=== PATIENT | female | born 1935 | race Caucasian/White ===

== ENCOUNTER 2022-02-13 09:03 | Inpatient (IN) | payer MEDICARE, BC ==
[~2022-02-13] VITALS: Ht 172.7 cm; Wt 79.2 kg
[2022-02-13] MEDS ORDERED: HYDROCHLOROTH12.5 MG PO (09:42)
[2022-02-13] MEDS ORDERED: ATORVASTATIN CA20 MG PO (09:42)
[2022-02-13] MEDS ORDERED: ATENOLOL25 MG PO (09:42)
[2022-02-13] MEDS ORDERED: ZONISAMIDE100 MG PO (09:42)
[2022-02-13] MEDS ORDERED: METFORMIN HCL500 M1 PO (09:43)
[2022-02-13] MEDS ORDERED: LOSARTAN POTAS100 MG PO (09:43)
[2022-02-13] MEDS ORDERED: BAYER CHEWABLE81 MG PO (09:43)
[2022-02-13] MEDS ORDERED: MULTIVITAMINS1 EACH PO (09:44)
[2022-02-13] MEDS ORDERED: BENEFIBER236 GM PO (09:44)
--- NOTE | 2022-02-13 13:15 | NUR ---
RECEIVED REPORT FROM ER FOR PT. PT TRANSFERRED VIA STRETCHER WITH NIGHT SHIFT AND CONTINUOUS FLUIDS. PT AMBULATED TO BED WITH STEADY GAIT AND NO WEAKNESS. HR FLUCTUATED BETWEEN 100 UP TO 130'S WITH AMBULATION. PT DID NOT EXPERIENCE ANY DIZZINESS/SOB/WEAKNESS WHILE AMBULATING. DAUGHTER IS IN ROOM AT BEDSIDE. ECHO CURRENTLY BEING PERFORMED. CALL LIGHT WITHIN REACH.
--- NOTE | 2022-02-13 13:27 | NUR ---
IMAGING IN ROOM AT THIS TIME
--- NOTE | 2022-02-13 14:51 | NUR ---
PERFORMED ADMIT ASSESSMENT ON PT AND MATERIALS MANAGER. PT HR REMAINS IRREGULAR, FLUCTUATING BETWEEN 80-LOW 100'S. BP IS LOW 100'S SYSTOLIC. PT IS NOT EXPERIENCING ANY CHEST PAIN, SOB, DIZZINESS. PULSES STRONG AND PRESENT THROUGHOUT. LUNGS ARE CLEAR THROUGHOUT. PT SKIN WARM/DRY BESIDES SLIGHTLY COLD FEET. PT IS NOW RESTING IN BED W/DAUGHTER AT BEDSIDE. BED RAILS UP, CALL LIGHT WITHIN REACH, NO FURTHER NEEDS AT THIS TIME. WILL CONTINUE TO MONITOR.
--- NOTE | 2022-02-13 15:18 | EKG ---
[facility] [address] [facility] [address] [facility] [place] [id number] Signed Atrial fibrillation with rapid ventricular response with premature ventricular or aberrantly conducted complexes Left anterior fascicular block Left ventricular hypertrophy with QRS widening ( R in aVL , Jeremiah product ) ST \T\ T wave abnormality, consider lateral ischemia Abnormal ECG No previous ECGs available Confirmed by ELIDIA PAREDES MD ([id number]) on 02/13/2022 3:18:35 PM Electronically Signed By: ELIDIA PAREDES MD 02/13/22 1518 PATIENT NAME: LIZZIE ZAYAS Electrocardiogram DATE OF : 39 PHYSICIAN: ELIDIA PAREDES MD REPORT #: [id number] REPORT IS CONFIDENTIAL AND NOT TO BE RELEASED WITHOUT AUTHORIZATION
--- NOTE | 2022-02-13 16:18 | NUR ---
IN TO ASSIST PT WITH AMBULATION. PT WAS ABLE TO AMBULATE WITH STEADY GAIT, STRENGTH TO BATHROOM. NO SOB/DIZZINESS/CHEST PAIN EXPERIENCED PER PT. AFIB. DOCUMENTED BM AND 500 ML URINE OUTPUT. HR REMAINS BETWEEN 80-100. INCREASES UP TO 120'S WITH AMBULATION. BP REMAINS LOW 100'S SYSTOLIC WITH MAP OF 91. LUNGS CLEAR THROUGHOUT. PULSES PRESENT THROUGHOUT. PT IS NOW RESTING IN BED WITH FAMILY AT BEDSIDE. NO FURTHER NEEDS AT THIS TIME. CALL LIGHT WITHIN REACH, BED RAILS UP, WILL CONTINUE TO MONITOR.
[2022-02-13] MEDS ORDERED: VITAMIN B-12500 MCG PO (17:00)
--- NOTE | 2022-02-13 17:04 | NUR ---
MED REC COMPLETE
--- NOTE | 2022-02-13 17:16 | NUR ---
IN PT ROOM FOR MELTER OPERATOR. PT IS SITTING UP IN BED EATING DINNER. PT HR IS FLUCTUATING BETWEEN 110-130. PT FAMILY IS AT BEDSIDE. SALINE LOCKED IV ON RIGHT FA. NO FURTHER NEEDS AT THIS TIME, CALL LIGHT WITHIN REACH, WILL CONTINUE TO MONITOR.
--- NOTE | 2022-02-13 17:47 | NUR ---
CALLED DR PAREDES WITH UPDATE ON PT ASSESSMENT. PT HR REMAINS AFIB WITH HR TRENDING UPWARDS TO [address] PAREDES STATES TO CONTINUE COURSE OF ACTION WITH CARE PLAN. WILL CONTINUE TO MONITOR.
--- NOTE | 2022-02-13 19:01 | NUR ---
ASSISTED PT WITH AMBULATION TO BATHROOM. GAIT REMAINS STEADY AND STRENGTH INTACT. PT DID NOT EXPERIENCE ANY SOB/DIZZINESS/CHEST PAIN WITH AMBULATION. HR ELEVATED TO 120'S WITH AMBULATION. DOCUMENTED 500 ML URINE OUTPUT. PT IS NOW RESTING IN BED WITH FAMILY AT BEDSIDE, AND WARM BLANKET. NO FURTHER NEEDS AT THIS TIME, CALL LIGHT WITHIN REACH, WILL CONTINUE TO MONITOR.
--- NOTE | 2022-02-13 20:15 | NUR ---
PT SITTING UP IN BED AWAKE AND ALERT, PT SALINE LOCKED, PT'S FAMILY AT THE BEDSIDE. VITALS TAKEN (SEE CHART) AND SCHEDULED PO METOPROLOL ADMINISTERED (SEE MAR). ASSESSMENT THEN COMPLETED. PT ALERT AND ORIENTED X4, DENIES LIGHTHEADNESS AND DENIES HAVING ANY PAIN. HEART RATE IRREGULAR, LUNGS ARE CLEAR, ABDOMEN SOFT, ACTIVE BOWEL TONES PRESENT. RADIAL AND PEDAL PULSES STRONG WITH BRISK CAPILLARY REFILL. PT REPORTS BASELINE NUMBNESS/TINGLING TO HER RIGHT LOWER EXTREMITY. PT REPORTS NO FURTHER NEEDS AT THIS TIME WHEN ASKED AND REMAINS RESTING IN BED WITH HER FAMILY AT THE BEDSIDE, WILL CONTINUE PLAN OF CARE. CALL LIGHT IN REACH.
--- NOTE | 2022-02-13 21:46 | NUR ---
PT SITTING UP IN BED AT THIS TIME AWAKE AND ALERT. SCHEDULED MEDICATION ADMINISTERED (SEE MAR). PT REPORTS NEEDING TO VOID AFTERWARDS, PT ASSISTED IN STANDING. PT ABLE TO WALK TO THE BATHROOM TO VOID 400ML OF YELLOW URINE AND GET BACK INTO THE BED WITHOUT ASSISTANCE. HR NOTED TO INCREASE TO THE 120'S WITH ACTIVITY, PT DENIES LIGHTHEADNESS/DIZZYNESS WHEN ASKED. 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 PT PROVIDED WITH WATER AFTERWARDS AND IS NOW RESTING IN BED. PT REPORTS NO FURTHER NEEDS WHEN ASKED, WILL CONTINUE PLAN OF CARE. CALL LIGHT IN REACH, BED IN LOWEST POSITION, PT'S DAUGHTER IN THE ROOM AT THE BEDSIDE.
--- NOTE | 2022-02-14 00:08 | NUR ---
PT LAYING IN BED SLEEPING AT THIS TIME. RESPIRATIONS NOTED AND ARE EVEN AND UNLABORED, PT IN NO APPARENT DISTRESS AND WAS LEFT UNDISTURBED. CALL LIGHT IN REACH, PT'S DAUGHTER SLEEPING IN ROOM ONT HE PULL DOWN BED, WILL CONTINUE PLAN OF CARE.
--- NOTE | 2022-02-14 01:50 | NUR ---
PT LAYING IN BED AWAKE AND ALERT. VITALS TAKEN AT THIS TIME AND SCHEDULED METOPROLOL ADMINISTERED (SEE MAR). PT UP TO THE BATHROOM TO VOID AFTERWARDS AND REQUIRED MINIMAL ASSISTANCE. HR NOTED TO INCREASE TO THE 110-120'S PT DENIED LIGHTHEADEDNESS OR DIZZYNESS. PT NOW BACK IN BED RESTING, WARM BLANKETS PROVIDED AND WATER PROVIDED. PT REPORTS NO FURTHER NEEDS, PILLOW PROVIDED TO ELEVATE LEFT ARM. PT REPORTS NO FURTHER NEEDS AT THIS TIME WHEN ASKED AND REMIANS RESTING IN BED, WILL CONTINUE PLAN OF CARE. CALL LIGHT IN REACH.
--- NOTE | 2022-02-14 05:15 | NUR ---
PT LAYING IN BED AWAKE AND ALERT. VITALS TAKEN AND ASSESSMENT COMPLETED AT THIS TIME. PT DENIES SHORTNESS OF BREATH, CHEST PAIN, OR PAIN IN GENERAL (SEE CHART). PT NEEDED TO VOID AFTER ASSESSMENT. PT ABLE TO GET OUT OF BED WITH MINIMAL ASSISTANCE, WALK TO THE BATHROOM TO VOID, AND GET BACK INTO BED. HR NOTED TO BE IN THE 100-120'S WITH AMBULATION, PT DENIED HAVING ANY LIGHTHEADEDNESS. PT NOW RESTING IN BED, WARM BLANKETS AND WATER PROVIDED. PT REPORTS NO FURTHER NEEDS WHEN ASKED, WILL CONTINUE PLAN OF CARE.
--- NOTE | 2022-02-14 05:55 | NUR ---
PT HEART RATED NOTED TO BE TRENDING UP AND IS MAINTAINING AT 100-120 IN A-FIB. PT AWAKE IN BED AT THIS TIME IN REST. PT DENIES HAVING ANY CHEST PAIN, AND DENIES FEELING LIGHTHEADED OR DIZZY. VITALS TAKEN AT THIS TIME. PT REPORTS NO FURTHER NEEDS AT THIS TIME WHEN ASKED, WILL CONTINUE PLAN OF CARE.
--- NOTE | 2022-02-14 06:15 | NUR ---
DR. PAREDES NOTIFIED OF PT'S INCREASING HEART RATE AND OTHER VITALS WELL PT BEING ALERT/ORIENTED AND DENYING ANY LIGHTHEADEDNESS OR DIZZNESS. NEW ORDERS GIVEN TO ADMINISTER 50MG METOPROLOL PO Q6 WITH THE FIRST DOSE STARTING NOW. WILL CONTINUE PLAN OF CARE.
--- NOTE | 2022-02-14 06:33 | NUR ---
PT LAYING IN BED AWAKE AT THIS TIME AND DENIES ANY CHEST PAIN OR LIGHTHEADEDNESS. VITALS TAKEN AND SCHEDULED LOPRESSOR ADMINISTERED (SEE MAR). PT REPORTS NO FURTHER NEEDS WHEN ASKED AT THIS TIME, CALL LIGHT IN REACH, WILL CONTINUE PLAN OF CARE.
--- NOTE | 2022-02-14 07:23 | NUR ---
RECEIVED MORNING REPORT, IN TO SEE PT. PT IS RESTING IN BED. HR IS IN LOW 90'S AT REST, NO SOB/DIZZINESS/CHEST PAIN. PT IS SLEEPING, DAUGHTER AT BEDSIDE. CALL LIGHT WITHIN REACH, BED RAILS UP, WILL CONTINUE TO MONITOR.
--- NOTE | 2022-02-14 07:52 | NUR ---
PATIENT UP TO BR WITH ASSISTANCE. VITALS AND I&OS CHARTED. DAUGHTER IN ROOM. PATIENT UP IN RECLINER FOR BREAKFAST AT THIS TIME. LINEN CHANGED AND CALL LIGHT IN EASY REACH
--- NOTE | 2022-02-14 07:53 | NUR ---
IN ROOM THIS AM TO CHECK ON PATIENT. PT CONTINUES TO BE IN AN AFIB RHYTHM WITH RATES THAT FLUCTUATE BETWEEN 90 AT REST AND UP INTO THE 130S WITH ACTIVITY. PT DENIES PAIN, SHORTNESS OF BREATH, OR DIZZINESS. DAUGHTER REMAINS AT BEDSIDE. CALL LIGHT WITHIN REACH. WILL CONTINUE TO MONITOR.
--- NOTE | 2022-02-14 08:55 | NUR ---
PT UP IN CHAIR EATING BREAKFAST. TWO DAUGHTERS AT PT BEDSIDE. PT HEART RATE IN THE 120S-130S CONSISTENTLY. BLOOD PRESSURE'S SYSTOLICALLY IN 90S. PT NOW BACK IN BED RESTING.
--- NOTE | 2022-02-14 09:29 | NUR ---
DISCUSSED PT HEART RATE AND ASSESSMENT FINDINGS WITH DR. PAREDES. ORDERS RECIEVED (SEE EMAR).
--- NOTE | 2022-02-14 09:34 | NUR ---
ASSISTED PT WITH AMBULATION TO BATHROOM. PT REPORTS NO SOB, DIZZINESS, LIGHTHEADEDNESS. HR WAS BETWEEN 130-140 WITH AMBULATION. BP REMAINS SOFT AT 99/72 POST AMBULATION. PT IS NOW RESTING IN BED WITH HEATED BLANKET ON BACK DUE TO ARTHRITIS. PT STATES SLIGHT PRESSURE SENSATION IN CHEST NOT PRESENT DURING AMBULATION, BUT POST ACTIVITY. FAMILY AT BEDSIDE, NO FURTHER NEEDS AT THIS TIME. WILL CONTINUE TO MONITOR.
--- NOTE | 2022-02-14 09:42 | NUR ---
CARDIZEM DRIP NOW INFUSING AT 5 MG/HR PER ORDER. FAMILY UPDATED ON PLAN OF CARE.
--- NOTE | 2022-02-14 11:10 | NUR ---
CARDIZEM DRIP PLACED ON STAND BY AT THIS TIME. PT HEART RATE HAS BEEN IN THE 70S-80S WITH SYSTOLIC BLOOD PRESSURES IN THE 90S-100S. DR REGGIE CONNELLY.
--- NOTE | 2022-02-14 12:07 | NUR ---
ASSISTED PT WITH AMBULATION TO BATHROOM AND TO CHAIR FOR LUNCH. PT AMBULATED WITH A STEADY GAIT AND DID NOT EXPERIENCE ANY SOB/DIZZINESS/CHEST PAIN. PT VOIDED 200 ML. PT IS NOW SITTING IN CHAIR EATING LUNCH WITH DAUGHTERS AT BEDSIDE. CALL LIGHT WITHIN REACH, WILL CONTINUE TO MONITOR.
--- NOTE | 2022-02-14 12:09 | NUR ---
IN ROOM FOR DR. PAREDES UPDATING PT AND FAMILY ON ECHO RESULTS AND PLAN OF CARE. WILL INCREASE METOPROLOL DOSE TO 75 MG, PT WILL BE STARTED ON A BLOOD THINNER (WILL CHECK WITH INS), AND WILL MONITOR HEART RATE/RHYTHM DURING WALK. PT AND DAUGHTERS ARE UNDERSTANDING AND IN AGREEANCE WITH CARE PLAN. PT IS RESTING IN CHAIR AND WILL EAT LUNCH. CALL LIGHT WITHIN REACH, NO FURTHER NEEDS AT THIS TIME, WILL CONTINUE TO MONITOR.
--- NOTE | 2022-02-14 12:48 | NUR ---
IN ROOM FOR MEDICATION ADMINISTRATION. SYSTOLIC BLOOD PRESSURE 96/58. DISCUSSED WITH DR. PAREDES. ORAL METOPROLOL ADMINISTERED AT THIS TIME (SEE EMAR).
--- NOTE | 2022-02-14 13:00 | NUR ---
PATIENT UP TO BR WITH 1PA. PATIENTS HR ELEVATED WITH ACTIVITY AND ALSO WHILE STANDING AT SINK BRUSHING TEETH. 3 DAUGHTERS IN ROOM. PATIENT BACK IN BED AT THIS TIME. CALL LIGHT AND PERSONAL ITEMS IN EASY REACH
--- NOTE | 2022-02-14 13:05 | NUR ---
IN PT ROOM FOR AFTERNOON ASSESSMENT AND CHIEF DIGITAL MEDIA OFFICER (SEE EMAR). PT IS RESTING IN CHAIR AFTER EATING LUNCH. PT HR IS 80-90'S AT REST AND INCREASES TO 100-115 WITH AMBULATION. PT BP REMAINS SOFT WITH 80-90'S SYSTOLIC. NO DIZZINESS/CHEST PAIN/LIGHTHEADEDNESS OCCURING PER PT. PULSES STRONG IN UPPER EXTREMETIES BUT WEAK/THREADY IN PEDAL. FEET ELEVATED WITH WARM BLANKET. LUNGS ARE STILL CLEAR THROUGHOUT. CALL LIGHT IS IN REACH, PT RECLINED WITH BLANKETS IN CHAIR, WILL CONTINUE TO MONITOR.
--- NOTE | 2022-02-14 15:00 | NUR ---
IN WITH PT FOR AFTERNOON ASSESSMENT, AND AMBULATION TO BATHROOM. PT TOLERATED WELL WITH NO SOB/DIZZINESS/CHEST PAIN AND MAINTAINED STEADY GAIT. PT HR 80'S-90'S AT REST AND 100-120 WITH AMBULATION. PT AGREED TO A WALK LATER DOWN THE FINNEY FOR FURTHER MONITORING. PT LUNGS CLEAR THROUGHOUT, PULSES PRESENT RADIAL/PEDAL WITH WARM/DRY SKIN. PT IS NOW RESTING IN BED WITH DAUGHTER AT BEDSIDE. NO FURTHER NEEDS AT THIS TIME. CALL LIGHT WITHIN REACH, WILL CONTINUE TO MONITOR.
--- NOTE | 2022-02-14 16:00 | NUR ---
Pt lives in a 1 story home with a ramp. Adult daughter and retired son lanie live with her and assist as needed. Pt has a cane and a walker, but rarely uses. Pt states she is not very active, but rides in the car when daughter grocery shops. Pt denies needs for any equipment. Plans on dc to home when cleared medically.
--- NOTE | 2022-02-14 17:21 | NUR ---
DISCUSSED ASSESSMENT FINDING AND PT HEART RATE WITH DR PAREDES. NEW ORDERS RECIEVED AT THIS TIME. FAMILY UPDATED ON PLAN OF CARE. ALL QUESTIONS ANSWERED. WILL CONTINUE TO MONITOR.
--- NOTE | 2022-02-14 18:56 | NUR ---
PT FINISHED WITH DINNER AND ASSISTED PT WITH AMBULATION BACK TO BED. PT TOLERATED DIGOXIN IV LOADING DOSE WELL WITH HR STILL FLUCTUATIONG BETWEEN 80-90'S. BP REMAINS SOFT AT 101 SYSTOLIC. PT IS NOW RESTING IN BED WITH WARM BLANKET AND DAUGHTER AT BEDSIDE. NO DIZZINESS/SOB/CHEST PAIN REPORTED BY PT WITH AMBULATION OR AT REST. CALL LIGHT WITHIN REACH, WILL CONTINUE TO MONITOR.
--- NOTE | 2022-02-14 20:15 | NUR ---
ARRIVED TO SHIFT, RECEIVED REPORT FROM DAY SHIFT, FOCUSED ASSESSMENT COMPLETED ON PT, ORDERS, LABS, AND EMAR REVIEWED, HEAD TO TOE ASSESSMENT COMPLETED, FAMILY WITH PT AT BEDSIDE, NO CURRENT NEEDS OR CONCERNS, WILL CONTINUE ROUNDS ON PT, CALL LIGHT WITHIN REACH, BED IN LOWEST POSITION, SIDE RAILS RAISED FOR SAFETY
--- NOTE | 2022-02-14 20:45 | NUR ---
PT CALLED, NEEDING TO USE RESTROOM, RN ASSISTED PT TO BATHROOM VIA SBA, PT ASSISTED BACK TO BED, PLACED IN POSITION OF COMFORT, URINE OUTPUT RECORDED
--- NOTE | 2022-02-14 21:37 | NUR ---
EVENING MEDICATIONS GIVEN PER MAR, WARM BLANKET PLACED ON PT, PT IN POSITION OF COMFORT, DAUGHTER AT BEDSIDE AND STAYING THE NIGHT, WATER REFILLED, CALL LIGHT WITHIN REACH, BED IN LOWEST POSITION, SIDE RAILS RAISED FOR SAFETY, WILL CONTINUE HOURLY ROUNDS
--- NOTE | 2022-02-14 22:37 | NUR ---
PT ASLEEP, DAUGHTER AT BEDSIDE, CURTAIN PULLED AND DOOR CLOSED FOR PRIVACY AND OPTIMAL REST, CALL LIGHT WITHIN REACH, BED IN LOWEST POSITION, SIDE RAILS UP FOR SAFETY, NO CURRENT NEEDS OR CONCERNS FROM PT OR FAMILY
--- NOTE | 2022-02-14 22:56 | NUR ---
PT CALLED, NEEDING TO USE BATHROOM, ASSISTED PT TO RESTROOM VIA SBA, PT VOIDED, URINE OUTPUT RECORDED, ASSISTED BACK TO BED, PLACED IN POSITION OF COMFORT, LAYING ON RIGHT SIDE, ABLE TO REPOSITION SELF, DAUGHTER REMAINS AT BEDSIDE, CALL LIGHT WITHIN REACH, SIDE RAILS RAISED FOR SAFETY, BED IN LOWEST POSITION, CURTAIN AND DOOR CLOSED
--- NOTE | 2022-02-15 01:23 | NUR ---
PT CALLED, NEEDING TO USE RESTROOM, PT ASSISTED TO RESTROOM VIA SBA, PT VOIDED, URINE OUTPUT RECORDED, PT ASSISTED BACK TO BED, PLACED IN POSITION OF COMFORT, COMPLAINING OF NAUSEA, MEDS GIVEN PER MAR, SALTINES GIVEN TO PT PER REQUEST, PT THEN STATING SHE THINKS SHE NEEDS TO HAVE A BOWEL MOVEMENT, PT ASSISTED BACK TO RESTROOM VIA SBA, GIVEN TIME IN BATHROOM, EDUCATED TO CALL WHEN DONE, DAUGHTER REMAINS WITH PT, PT ASSISTED BACK TO BED VIA SBA WHEN FINISHED, NO BOWEL MOVEMENT HOWEVER PASSING GAS, PT STATES SHES COMFORTABLE, CALL LIGHT WITHIN REACH, SIDE RAILS UP FOR SAFETY, BED IN LOWEST POSITION
--- NOTE | 2022-02-15 03:42 | NUR ---
PT RESTING COMFORTABLY, DAUGHTER REMAINS AT BEDSIDE, ALLOWING PT TO REST. CALL LIGHT WITHIN REACH, BED IN LOWEST POSITION, SIDE RAILS RAISED FOR SAFETY
--- NOTE | 2022-02-15 06:43 | NUR ---
PT HAD UNEVENTFULL NIGHT, RESTED THROUGHOUT NIGHT, VITALS WNL, AMBULATED TO BATHROOM MULTIPLE TIMES, NO LABS ORDERED FOR THIS AM, EMAR REVIEWED, CHARTING UP TO DATE, SPOKE TO FAMILY REGARDING BREAKFAST AND HOW TO ORDER, AWAITING DAY SHIFT FOR REPORT
--- NOTE | 2022-02-15 07:34 | NUR ---
REPORT RECIEVED, CARE OF PATIENT ASSUMED AT THIS TIME. PT RESTING IN BED, DAUGHTER AT BEDSIDE. DENIES PAIN OR DISCOMFORT. DISCUSSED PLAN OF CARE FOR DAY. CALL LIGHT WITHIN REACH. WILL CONTINUE TO MONITOR.
--- NOTE | 2022-02-15 08:00 | NUR ---
PATIENT AWAKE IN BED, DAUGHTER IN ROOM. VITALS AND I&OS CHARTED. FACE AND HANDS WASHEDAND PATIENT NOW IN CHAIR FOR BREAKFAST. CLEAN LINEN AND FRESH WATER PROVIDED. CALL LIGHT IN EASY REACH
--- NOTE | 2022-02-15 08:15 | NUR ---
Spoke with Rn for update. Pt feeling better, may move to the floor. Pt cont. with family in the room around the clock, has good support. No needs from CM.
--- NOTE | 2022-02-15 08:15 | NUR ---
Spoke with Rn and received update. Pt feeling better and may move to the floor today. Sister is assisting her to hire a cg for home.
--- NOTE | 2022-02-15 08:20 | NUR ---
ASSESSMENT AND MEDICATION ADMINISTRATION COMPLETED. PT ALERT AND ORIENTED, UP IN CHAIR EATING BREAKFAST. LUNGS SOUND CLEAR. HEART RATE IN THE 80S AT REST, UP TO 110 WITH ACTIVITY. MEDICATIONS ADMINISTERED. CALL LIGHT WITHIN REACH. WILL CONTINUE TO MONITOR.
--- NOTE | 2022-02-15 09:20 | NUR ---
PATIENT UP TO SHOWER WITH 1PA. TOLERATED WELL, AND NOW BACK TO BED FOR REST. 3 DAUGHTERS IN ROOM. CALL LIGHT IN REACH AND FRESH WATER PROVIDED.
--- NOTE | 2022-02-15 10:00 | NUR ---
PT AMBULATED IN HALLWAYS AND TOOK A SHOWER. DENIES SHORTNESS OF BREATH OR DIZZINESS. HEART RATE BETWEEN 1001-30 WITH ACTIVITY BUT BACK DOWN INTO THE 80S WITH REST. REMAINS IN AN AFIB RHYTHM. PT NOW BACK IN BED. CALL LIGHT WITHIN REACH. WILL CONTINUE TO MONITOR.
--- NOTE | 2022-02-15 11:55 | NUR ---
PATIENT SITTING UP IN RECLINER FOR LUNCH. DAUGHTER IN ROOM. CALL LIGHT IN EASY REACH
--- NOTE | 2022-02-15 12:01 | NUR ---
REPORT GIVEN TO SHONDA HAILE ON THE MEDICAL FLOOR AT THIS TIME.
--- NOTE | 2022-02-15 12:30 | NUR ---
PATIENT TRANFERED TO MEDICAL FLOOR VIA RECLINER. ROOM CLEARED OF ALL PERSONAL ITEMS, AND TAKEN TO NEW ROOM. DAUGHTER IN ROOM WELL.
--- NOTE | 2022-02-15 12:40 | NUR ---
PT TO ROOM 123 FROM CCU VIA RECLINER. PT ORIENTED TO ROOM AND CALL LIGHT. VSS. DAUGHTER AT BEDSIDE. DENIES NEEDS AT THIS TIME.
--- NOTE | 2022-02-15 13:15 | NUR ---
PT UP TO RESTROOM, HR 130-140'S. NO COMPLAINTS OF DIZZINESS, SOB OR CHEST DISCOMFORT. PT TO BED, HR 90'S.
--- NOTE | 2022-02-15 16:15 | NUR ---
PT AMBULATING IN HALLWAY. HR 140'S, NO COMPLAINTS OF DIZZINESS, SOB OR CHEST DISCOMFORT.
--- NOTE | 2022-02-15 17:47 | NUR ---
PT IN CHAIR VISITING WITH DAUGHTER. DINNER DELIVERED. DENIES NEEDS AT THIS ITME. CALL LIGHT WITHIN REACH.
--- NOTE | 2022-02-15 19:20 | NUR ---
SHIFT REPORT RECEIVED FROM DAYSHIFT RN MIC AND JESSICA, pt AWAKE AND RESTING IN CHAIR. ON RA, RR EVEN AND UNLABORED. FAMILY IN ROOM, ATTENTIVE TO pt. TELE#[address], AFIB W/ HR 102. NO DISTRESS NOTED, NO NEEDS OR CONCERNS VERBALIZED BY pt OR FAMILY. BOARD UPDATED. WILL MONITOR.
--- NOTE | 2022-02-15 20:05 | NUR ---
in to get vitals, i&os, pt incont recently, due to void for shift production supervisor, fresh water given, no further needs at thsi time
--- NOTE | 2022-02-15 20:30 | NUR ---
ASSESSMENT COMPLETE, SCHEDULED MEDS GIVEN (SEE EMAR). pt DENIES PAIN AND NAUSEA. pt UP SBA TO VOID VIA BATHROOM, pt DENIES CHEST PAIN, SOB, DIZZINESS.HR UP TO 130'S WITH AMBULATION, RETURNED TO BASELINE ONCE BACK IN BED. pt EDUCATED TO USE CALL LIGHT IF S/SX OCCUR, pt AND FAMILY BOTH VERBALIZE UNDERSTANDING. IV SITE WNL, FLUSHES EASILY. pt DENIES FURTHER NEEDS OR CONCERNS. CALL LIGHT IN REACH.
--- NOTE | 2022-02-15 22:30 | NUR ---
ROUNDED ON pt, pt RESTING QUIETLY IN BED WITH EYES CLOSED. ON RA, RR EVEN AND UNLABORED. NO DISTRESS NOTED. NEW FAMILY MEMBER IN ROOM, INTRODUCED SELF AND UPDATED FAMILY ON POC. VERBALIZED UNDERSTANDING. NO NEEDS OR CONCERNS AT THIS TIME.
--- NOTE | 2022-02-15 23:10 | NUR ---
IN TO GET BP/HR/RR FOR RN, PT VOIDED RECENTLY,
--- NOTE | 2022-02-15 23:30 | NUR ---
SCHEDULED X1 LOPRESSOR GIVEN, SEE EMAR. VSS. NO FURTHER NEEDS. CALL LIGHT IN REACH.
--- NOTE | 2022-02-16 00:40 | NUR ---
IV PUMP ALARMING, ISSUE RESOLVED. IV FLUIDS INFUSING DIRECTED, IV SITE WNL. BED ALAMR ON FOR SAFETY AND CALL LIGHT IN REACH.
--- NOTE | 2022-02-16 01:18 | NUR ---
ROUNDED ON pt, pt RESTING QUIETLY IN BED WITH EYES CLOSED. ON RA, RR EVEN AND UNLABORED. pt REMAINS ON TELE#7, AFIB, HR 80'S. CALL LIGHT IN REACH.
--- NOTE | 2022-02-16 02:40 | NUR ---
SCHEDULED CARDIAC MED GIVEN, SEE EMAR. VSS, pt UP TO VOID SBA AND BACK TO BED. pt DENIED S/SX OF CHEST PAIN, DIZZINESS, LIGHTHEADEDNESS W/ AMBULATION. ASSESSMENT COMPLETE, NO ACUTE CHANGES. CALL LIGHT IN REACH.
--- NOTE | 2022-02-16 06:19 | NUR ---
VSS AND I&O'S COMPLETE, FRESH WATER AT BEDSIDE. NO FURTHER NEEDS OR CONCERNS VERBALIZED. CALL LIGHT IN REACH.
--- NOTE | 2022-02-16 08:13 | NUR ---
PT ASSISTED BY 2 STAFF AND FWW TO THE BSC TO VOID. VOIDED 300ML CLOUDY, YELLOW URINE. PT. IS WEAK AND NEEDS ASSISTANCE TO STAND. SHE ANSWERS QUESTIONS APPROPRIATELY. PT. LEFT RESTING WITH CALL LIGHT IN REACH AND BED ALARM ON.
--- NOTE | 2022-02-16 09:13 | NUR ---
MORNING ASSESSMENT COMPLETE. PT SIT UP AWAKE IN BED VISITING DAUGHTER. REQUESTED ICE PACK FOR RIGHT BACK PAIN. DENIES FURTHER NEEDS AT THIS TIME. CALL LIGHT WITHIN REACH.
--- NOTE | 2022-02-16 10:43 | NUR ---
PT LYING AWAKE IN BED VISITING FAMILY. DENIES NEEDS AT THIS TIME. CALL LIGHT WITHIN REACH. FAMILY AT BEDSIDE.
--- NOTE | 2022-02-16 12:32 | NUR ---
PT AMBULATED IN HALLWAY 5 MINUTES. HR IN 110'S, OCCASIONALLY 120'S. DENIES DIZZINESS, LIGHTHEADEDNESS, SOB OR CHEST DISCOMFORT. BACK TO ROOM IN CHAIR FOR LUNCH. DENIES NEEDS AT THIS TIME. CALL LIGHT WITHIN REACH. DAUGHTER AT BEDSIDE.
[2022-02-16] MEDS ORDERED: ELIQUIS5 MG PO (13:20)
[2022-02-16] MEDS ORDERED: METOPROLOL SUC100 MG PO (13:21)
[2022-02-16] MEDS ORDERED: DIGOXIN125 MCG PO (13:22)
--- NOTE | 2022-02-16 14:39 | NUR ---
ALL DISCHARGE INSTRUCTIONS REVIEWED WITH PT. AND QUESTIONS ANSWERED. IV REMOVED BY SHONDA LOPEZ. VITALS STABLE. PT. LEAVING VIA WHEELCHAIR WITH SHALE MINER AND DAUGHTER WITH ALL BELONGINGS.
== END 2022-02-16 14:40 | disposition home or self-care (01) | DRG 310 ==
LOC: ED 09:03 → CCU 09:06 → MS 02-15 12:25
PROVIDERS: ADMIT Internal Medicine; ATTEND Internal Medicine
DX: I48.0 Paroxysmal atrial fibrillation (principal); E86.0 Dehydration; E87.6 Hypokalemia; T50.2X5A Adverse effect of carbonic-anhydrase inhibitors, benzothiadiazides and other diuretics, initial encounter; I10 Essential (primary) hypertension; E78.5 Hyperlipidemia, unspecified; E11.9 Type 2 diabetes mellitus without complications; G40.909 Epilepsy, unspecified, not intractable, without status epilepticus; Z88.0 Allergy status to penicillin; Z79.899 Other long term (current) drug therapy; Z79.84 Long term (current) use of oral hypoglycemic drugs
CPT/HCPCS: 36415; 71045; 80048; 80053; 80162; 81001; 83735; 83880; 84484; 85025; 87502; 93005; 93010; 93306; 96361; 96372; A9270; C9803; G0378; J1160; J1650; J2405; J3475; J3480; J7040; J7120; U0003